=== PATIENT | male | born 1985 | race Caucasian/White ===

== ENCOUNTER 2017-05-24 06:51 | Emergency (ER) | payer OTHER ==
[2017-05-24] MEDS ORDERED: ASPIRIN 325 MG TABLET PO ONE (07:06)
[2017-05-24] MEDS ORDERED: MORPHINE SULFATE 5 MG/ML PFS IVP ONE (07:06)
--- NOTE | 2017-05-24 07:06 | Emergency Department Record ---
History of Present Illness - General Chief Complaint: Chest Pain Stated Complaint: SOB/CHEST PAIN Time Seen by Provider: 05/24/17 07:01 Source: Patient, Family Mode of Arrival: Ambulatory Limitations: No limitations - History of Present Illness Initial Comments: 32 yo male presents with chest pain that started at 5:30am. He states it is a heaviness with shortness of breath. He denies any prior CAD. He did not have any symptoms the last few days. He is obese, non smoker, has HTN and elevated cholesterol. No other recent health issues. PCP is in [facility]. No leg edema. The discomfort is a heaviness that is gradually going away from the time it started today. MD Complaint: Chest pain -: Hour(s) (1.5) Onset: Awoke with symptoms Pain Location: Substernal Pain Radiation: None Severity: Moderate Quality: Heaviness Consistency: Intermittent Improves With: Nothing Worsens With: Nothing Context: Other Anginal Symptoms: Diaphoresis, Dyspnea Treatments Prior to Arrival: None - Related Data Home Medications Medication Instructions Recorded Confirmed Last Taken Hydrocodone/Acetaminophen [Canadensis 1 each PO BID 05/24/17 05/24/17 05/23/17 10-325 Tablet] Insulin Glargine,Hum.rec.anlog 300 unit SQ DAILY 05/24/17 05/24/17 05/23/17 [Karlie Hdz] Oxycodone HCl [Oxycontin] 60 mg PO TID 05/24/17 05/24/17 05/23/17 Pioglitazone HCl [Actos] 15 mg PO DAILY 05/24/17 05/24/17 05/23/17 Trazodone HCl 50 mg PO QHS 05/24/17 05/24/17 05/23/17 Zolpidem Tartrate [Ambien] 10 mg PO QHS 05/24/17 05/24/17 05/23/17 Allergies Allergy/AdvReac Type Severity Reaction Status Date / Time No Known Drug Allergies Allergy Verified 05/24/17 07:10 Review of Systems Constitutional: Denies: Chills, Fever, Malaise, Weakness Eyes: Denies: Eye discharge, Photophobia ENT: Denies: Congestion, Epistaxis, Throat pain Respiratory: Reports: Dyspnea. Denies: Cough, Hemoptysis, Stridor, Wheezes Cardiovascular: Reports: Chest pain. Denies: Palpitations, Syncope Endocrine: Denies: Fatigue, Polydipsia, Polyuria Gastrointestinal: Denies: Abdominal pain, Diarrhea, Nausea, Vomiting Genitourinary: Denies: Dysuria, Frequency, Hematuria Musculoskeletal: Denies: Arthralgia, Back pain, Joint swelling, Myalgia Skin: Denies: Bruising, Change in color, Pruritus Neurological: Denies: Confusion, Headache Psychiatric: Denies: Anxiety Hematological/Lymphatic: Denies: Blood Clots, Easy bleeding, Easy bruising, Swollen glands Physical Exam - General General Appearance: Alert, Oriented x3, Cooperative, No acute distress Limitations: No limitations - Head Head exam: Atraumatic, Normocephalic, Normal inspection - Eye Eye exam: Normal appearance - ENT ENT exam: Normal exam, Mucous membranes moist Ear exam: Normal external inspection Nasal Exam: Normal inspection Mouth exam: Normal external inspection Teeth exam: Dental caries Throat exam: Normal inspection - Neck Neck exam: Normal inspection, Full ROM. negative: Tenderness - Respiratory Respiratory exam: Normal lung sounds bilaterally. negative: Accessory muscle use, Decreased breath sounds, Respiratory distress, Rhonchi, Stridor, Wheezes - Cardiovascular Cardiovascular Exam: Regular rate, Normal rhythm, Normal heart sounds Peripheral Pulses: 2+: Radial (R), Radial (L) - GI/Abdominal GI/Abdominal exam: Soft. negative: Tenderness - Rectal Rectal exam: Deferred - exam: Deferred - Extremities Extremities exam: Normal inspection, Full ROM, Normal capillary refill. negative: Pedal edema, Tenderness - Back Back exam: Reports: Normal inspection, Full ROM. Denies: CVA tenderness (R), CVA tenderness (L), Muscle spasm, Rash noted, Tenderness - Neurological Neurological exam: Alert, Normal gait, Oriented X3 - Psychiatric Psychiatric exam: Normal affect, Normal mood - Skin Skin exam: Dry, Intact, Normal color, Warm Course - Reevaluation(s) Reevaluation #1: EKG NSR, rate 87, intervals normal, axis normal, ST changes inferior lateral. No old EKG. I discussed with the patient that he has changes. I recommend transfer for inferior lateral T wave inversion to a hospital with cardiology. His preference is to transferred to [facility] 05/24/17 07:02 05/24/17 07:13 05/24/17 07:17 The patient took 2 325mg Aspirin prior to arrival. Our order will be held Reevaluation #2: The CBC was reviewed No acute change The CMP was reviewed Glucose is 143 Total CK 180 Troponin Pending. Pain is almost gone at this time He has had heparin, nitro, aspirin morphine 05/24/17 07:30 05/24/17 07:32 Reevaluation #3: Troponin is negative at 0.02 and BNP increased at 506 Portable CXR was preliminarily reviewed by me Limited as a portable but CMG otherwise no acute process [facility] was contacted for transfer. I SW Dr Feliz of [facility]. He accepts the patient for transfer. 05/24/17 07:42 Reevaluation #4: EKG #2 NSR rate 86, intervals NL, [place] normal, ST lateral t wave inversion improved but still present. 05/24/17 07:47 05/24/17 07:57 The chest pain scale is 0 out of 10 at this time. 05/24/17 08:23 The chest pain scale is 0 of out 10 at this time, no shortness of breath. Comfortable. Awaiting bed placement at [facility] 05/24/17 09:04 The chest pain scale is 0 out of 10 at this time. He is comfortable still. He was assigned a bed at [facility] under DR Del Castillo Medical Decision Making - Lab Data Result diagrams: 05/24/17 07:00 05/24/17 07:00 Disposition Disposition: Transfer Clinical Impression: Unstable angina Chest pain Qualifiers: Chest pain type: unspecified Qualified Code(s): R07.9 - Chest pain, unspecified Disposition: Acute Care Hospital Transfer Transfer To: [facility] Reason For Transfer: Cardiology Consultation for EKG changes Accepting Physician: Kevin Del Castillo Time Discussed w/Accepting Physician: 07:45 Condition: (2) Stable Forms: Patient Portal Access Time of Disposition: 08:02
[2017-05-24] MEDS ORDERED: HEPARIN SODIUM 1000 UNIT/1 ML 10ML VIAL IVP ONE (07:07)
[2017-05-24] MEDS ORDERED: HEPARIN SODIUM/D5W 25,000 UNITS/500 ML BAG IV SCH (07:15)
[2017-05-24 07:17] LABS: BASO % 0.4 % (0-6); EOS % 5.3 % (0-6); GRAN % 45.8 % (47-80); HEMATOCRIT 43.4 % (42.0-52.0); HEMOGLOBIN 14.3 gm/dl (14.0-18.0); LYMPH % 39.4 % (16-45); MEAN CELL VOLUME 84.4 fl (81-97); MEAN CORPUSCULAR HEMOGLOBIN 27.8 pg (27-33); MEAN CORPUSCULAR HGB CONC 32.9 g/dl (32-36); MEAN PLATELET VOLUME 11.5 fl (7.4-10.4); MONO % 9.1 % (0-9); PLATELET COUNT 321 K/uL (130-400); RED BLOOD COUNT 5.14 M/uL (4.40-5.70); RED CELL DISTRIBUTION WIDTH 13.1 % (11.5-14.5)
[2017-05-24] MEDS: NITROGLYCERIN 0.4MG SL TABLET #25 BTL SL PRN ×3 (07:22→07:40)
[2017-05-24 07:28] LABS: ALB/GLOB RATIO 1.5 (1.1-1.8); ALKALINE PHOSPHATASE 73 U/L (38-126); ALT/SGPT 45 U/L (21-72); ANION GAP 10.4 (7-16); AST/SGOT 31 U/L (17-59); BILIRUBIN,TOTAL 0.56 mg/dL (0.2-1.3); BLOOD UREA NITROGEN 15 mg/dL (9-20); CARBON DIOXIDE 28.6 mmol/L (22-30); CREATINE PHOSPHOKINASE 180 U/L (55-170); CREATININE 0.8 mg/dL (0.66-1.25); EST GLOMERULAR FILTRATION RATE > 60 ml/min; GLUCOSE,RANDOM 143 mg/dL (70-110); INR 0.96; PARTIAL THROMBOPLASTIN TIME 28.4 SECONDS (24.5-39.1); PROTHROMBIN TIME (PATIENT) 10.8 SECONDS (9.5-12.1); TOTAL PROTEIN 8.3 gm/dL (6.3-8.2)
[2017-05-24 07:40] LABS: CKMB 1.7 ug/L (0-6)
[2017-05-24] MEDS ORDERED: NITROGLYCERIN/D5W 50 MG/250 ML ML IV SCH (08:00)
--- NOTE | 2017-05-24 11:39 | RADIOLOGY REPORT ---
EXAM: CHEST AP or PA ONLY HISTORY: CHEST PAIN. SHORTNESS OF BREATH. TECHNIQUE: A single mobile semi-erect view of the chest is obtained. COMPARISON: None. FINDINGS: The examination is mildly limited by body habitus. The heart is not enlarged. No pulmonary venous hypertension is seen. No confluent airspace opacity identified, nor is there costophrenic angle blunting or pneumothorax. IMPRESSION: 1. EXAM LIMITED BY BODY HABITUS. 2. MILD ELEVATION OF THE RIGHT HEMIDIAPHRAGM. 3. NO CONVINCING EVIDENCE OF ACUTE CARDIOPULMONARY DISEASE. JOB NUMBER: [id number] MTDD
== END 2017-05-24 09:29 | disposition short-term general hospital (02) ==
LOC: ER 06:51
DX: I20.0 Unstable angina (principal); R06.02 Shortness of breath; R61 Generalized hyperhidrosis; I10 Essential (primary) hypertension; E11.9 Type 2 diabetes mellitus without complications; Z79.4 Long term (current) use of insulin
CPT/HCPCS: 99285; 96365; 96366; 96375; 96368; 99284; 82550; 85025; 85730; 85610; 82553; 84484; 80053; 83880; 71010; 93005; 93010; J2270